=== PATIENT | female | born 1970 | race Caucasian/White ===

== ENCOUNTER 2024-05-11 16:24 | Emergency (ER) | payer BC, SELFPAY ==
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
[2024-05-11 16:40] VITALS: BP 132/95; PULSE 93; RESP 20; TEMP 36.6; O2SAT 98
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
== END 2024-05-11 17:45 | disposition home or self-care (01) ==
PROVIDERS: Emergency Provider Nurse Practitioner Family; PCP Internal Medicine
DX: S22.41XA Multiple fractures of ribs, right side, initial encounter for closed fracture (principal); Y04.0XXA Assault by unarmed brawl or fight, initial encounter; I10 Essential (primary) hypertension; F41.9 Anxiety disorder, unspecified; F32.A Depression, unspecified
CPT/HCPCS: 71101; 99203; G0463